=== PATIENT | female | born 1965 | race Hispanic/Latino ===

== ENCOUNTER → 2021-05-30 | Outpatient (CLI) | payer BC, OTHER ==
[~2021-05-30] MED LIST: CEFAZOLIN SODIUM 2 GM VIAL IV SCH
[2021-05-30 10:45] LABS: BASOPHILS % (AUTO) 0.5 % (0.0-5.0); EOSINOPHILS % (AUTO) 1.9 % (0.0-8.0); HEMATOCRIT 39.8 % (36-48); LYMPHOCYTES % (AUTO) 31.2 % (21.0-51.0); MEAN CORPUSCULAR HEMOGLOBIN 27.6 pg (27.0-33.0); MEAN CORPUSCULAR HGB CONC 32.4 g/dL (32.0-36.0); MONOCYTES % (AUTO) 7.8 % (3.0-13.0); PLATELET COUNT (AUTO) 370 K/uL (130-400); RED BLOOD CELL COUNT(AUTO) 4.68 MIL/uL (4.00-5.50); RED CELL DISTRIBUTION WIDTH 14.1 % (11.0-15.5); WHITE BLOOD COUNT (AUTO) 12.5 K/uL (4.8-10.8)
[2021-05-30 10:53] LABS: POTASSIUM 4.2 mmol/L (3.5-5.1)
== END | disposition home or self-care (01) ==
LOC: EDSTATUS 09:00 → DAH 10:00
PROVIDERS: ATTEND Orthopaedic Surgery
DX: U07.1 COVID-19 (principal); Z01.812 Encounter for preprocedural laboratory examination; S83.282A Other tear of lateral meniscus, current injury, left knee, initial encounter; S83.242A Other tear of medial meniscus, current injury, left knee, initial encounter; X58.XXXA Exposure to other specified factors, initial encounter; Y93.89 Activity, other specified; Y92.89 Other specified places as the place of occurrence of the external cause; Y99.8 Other external cause status
CPT/HCPCS: 36415; 80048; 85025; 87635; C9803

== ENCOUNTER 2021-06-15 09:32 | Day surgery (SDC) | payer BC, OTHER ==
[2021-06-14 14:50] LABS: BASOPHILS % (AUTO) 0.8 % (0.0-5.0); EOSINOPHILS % (AUTO) 3.4 % (0.0-8.0); HEMATOCRIT 38.7 % (36-48); LYMPHOCYTES % (AUTO) 29.7 % (21.0-51.0); MEAN CORPUSCULAR HEMOGLOBIN 26.9 pg (27.0-33.0); MEAN CORPUSCULAR HGB CONC 31.8 g/dL (32.0-36.0); MEAN CORPUSCULAR VOLUME 84.5 fL (79-99); MONOCYTES % (AUTO) 6.1 % (3.0-13.0); NEUTROPHILS % (AUTO) 59.7 % (40.0-77.0); PLATELET COUNT (AUTO) 342 K/uL (130-400); RED BLOOD CELL COUNT(AUTO) 4.58 MIL/uL (4.00-5.50); RED CELL DISTRIBUTION WIDTH 13.9 % (11.0-15.5); WHITE BLOOD COUNT (AUTO) 7.7 K/uL (4.8-10.8)
[2021-06-14 15:12] VITALS: BP 174/65
[2021-06-15] VITALS (19 sets, daily range): BP systolic 117–156; BP diastolic 48–90
[~2021-06-15] VITALS: Ht 157.5 cm; Wt 81.5 kg
[2021-06-15] MEDS: CEFAZOLIN SODIUM 1 GM VIAL IVP ONE ×2 (08:00→10:57)
[~2021-06-15 09:32] MED LIST changes: -CEFAZOLIN SODIUM 2 GM VIAL IV SCH; +LACTATED RINGERS 1000ML 1,000 ML IV ONE; +LEVO100C4 PO
[2021-06-15] MEDS ORDERED: LIDOCAINE PF 100MG/5ML (2%) SYRINGE 5ML ONE ×2 (10:39→10:42)
[2021-06-15] MEDS ORDERED: SUCCINYLCHOLINE CHLORIDE 20 MG/ML 10 ML VIAL ONE ×2 (10:39→10:42)
[2021-06-15] MEDS ORDERED: SUCCINYLCHOLINE 200MG/10ML SYR ONE (10:39)
[2021-06-15] MEDS ORDERED: ROCURONIUM 10MG/1ML SYR 10 MG/ML ML ONE (10:40)
[2021-06-15] MEDS ORDERED: NEOSTIGMINE 5MG/5ML SYR IV ONE (10:40)
[2021-06-15] MEDS ORDERED: GLYCOPYRROLATE 1 MG/5 ML SYRINGE ONE (10:40)
[2021-06-15] MEDS ORDERED: FENTANYL CITRATE PF 50 MCG/1 ML 2ML VIAL ONE (10:40)
[2021-06-15] MEDS ORDERED: ONDANSETRON 4MG INJ ONE (10:40)
[2021-06-15] MEDS ORDERED: MIDAZOLAM HCL 1 MG/ML 2ML VIAL ONE (10:40)
[2021-06-15] MEDS ORDERED: PROPOFOL 10 MG/ML 20ML VIAL IV ONE (10:40)
[2021-06-15] MEDS ORDERED: MEPERIDINE-PF 25 MG/ML SYG ONE ×2 (11:06→11:53)
[2021-06-15] MEDS ORDERED: PHEN37.596 PO (11:36)
[2021-06-15] MEDS ORDERED: CEPH500B PO (11:41)
[2021-06-15] MEDS ORDERED: IBUP-2071 PO (11:41)
[2021-06-15] MEDS ORDERED: IBUPROFEN 800 MG TAB PO ONE (13:45)
== END 2021-06-15 14:15 | disposition home or self-care (01) ==
LOC: DAH 09:32
PROVIDERS: ATTEND Orthopaedic Surgery
DX: M23.322 Other meniscus derangements, posterior horn of medial meniscus, left knee (principal); Z20.822 Contact with and (suspected) exposure to COVID-19; M94.262 Chondromalacia, left knee; I10 Essential (primary) hypertension; E03.9 Hypothyroidism, unspecified; Z98.890 Other specified postprocedural states; Z90.710 Acquired absence of both cervix and uterus; Z80.8 Family history of malignant neoplasm of other organs or systems; Z79.899 Other long term (current) drug therapy
CPT/HCPCS: 29881; 36415; 85025; 87635; A4213; A4215; A4216 ×2; A4221; A4222; A4223 ×2; A4649; A4663; A4930 ×2; A5120; A6223; C9803; J0330 ×3; J0690; J2001 ×2; J2175 ×2; J2250; J2405; J2704; J2710; J3010; J3490; J7120